=== PATIENT | male | born 1965 | race African-American/Black ===

== ENCOUNTER 2018-06-12 00:05 | Inpatient (IN) ==
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
[2018-06-12 01:25] LABS: Baso % (Auto) 0.3 % (0.0-2.0); Eos # (Auto) 0.5 th/mm3 (0.0-0.4); Eos % (Auto) 6.1 % (0.0-4.0); Hematocrit 37.5 % (39.0-51.0); Hemoglobin 12.9 gm/dL (13.0-17.0); Lymph # (Auto) 1.9 th/mm3 (1.0-4.8); Lymph % (Auto) 24.5 % (9.0-44.0); Mean Corpuscular HGB Conc 34.5 % (32.0-36.0); Mean Corpuscular Hemoglobin 31.5 pg (27.0-34.0); Mean Corpuscular Volume 91.3 fL (80.0-100.0); Mean Platelet Volume 8.1 fL (7.0-11.0); Mono # (Auto) 0.6 th/mm3 (0.0-0.9); Mono % (Auto) 7.6 % (0.0-8.0); Neut # (Auto) 4.8 th/mm3 (1.8-7.7); Neut % (Auto) 61.5 % (16.0-70.0); Platelet Count 220 th/mm3 (150-450); Red Cell Distribution Width 16.7 % (11.6-17.2); White Blood Count 7.9 th/mm3 (4.0-11.0)
--- NOTE | 2018-06-12 01:36 | XR ---
EXAM DATE: 06/12/2018 1:22 AM EST AGE/SEX: 52 years / Male INDICATIONS: Psych eval. CLINICAL DATA: This is the patient's initial encounter. Patient reports that signs and symptoms have been present for 1 day and indicates a pain score of Nonresponsive. MEDICAL/SURGICAL HISTORY: Non-responsive. CABG. COMPARISON: No prior exams available for comparison. FINDINGS: Single AP view the chest. Median sternotomy wires. Moderate severity cardiac silhouette enlargement. Prosthetic cardiac valve. Loop recorder in place. Lungs are clear. No evidence of pleural effusion or pneumothorax. CONCLUSION: Cardiac silhouette enlargement. Lungs are clear. Electronically signed by: Jc Jeff MD 06/12/2018 1:35 AM EST
[2018-06-12 01:42] LABS: Alanine Aminotransferase 15 U/L (12-78); Albumin 3.5 g/dL (3.4-5.0); Anion Gap 10 meq/L (5-15); Aspartate Aminotransferase 14 U/L (15-37); Blood Urea Nitrogen 9 mg/dL (7-18); Calcium 8.5 mg/dL (8.5-10.1); Carbon Dioxide 26.9 meq/L (21.0-32.0); Chloride 110 meq/L (98-107); Glomerular Filtration Rate 54 mL/min (>89); Glucose,Random 75 mg/dL (74-106); Potassium 3.8 meq/L (3.5-5.1); Sodium 147 meq/L (136-145)
[2018-06-12 01:45] LABS: Alkaline Phosphatase 66 U/L (45-117); Total Protein 7.4 g/dL (6.4-8.2)
--- NOTE | 2018-06-12 15:23 | ECG ---
Date Performed: 06/12/2018 Time Performed: 00:43:57 PTAGE: 52 years EKG: Sinus rhythm POSSIBLE LEFT ATRIAL ENLARGEMENT INDETERMINATE AXIS POSSIBLE ANTERIOR MYOCARDIAL INFARCTION INFERIOR MYOCARDIAL INFARCTION ARTIFACT V4, V5, V6 MAKES THIS SUBSTANDARD FOR INTERPRETATION. LOW LIMB LEAD V OLTAGE ABNORMAL ECG NO PREVIOUS TRACING DOCTOR: Moiz Britt Interpretating Date/Time 06/12/2018 15:22:21
[2018-06-12] MEDS ORDERED: Bisacodyl 10 MG Supp RECTAL PRN (16:34)
[2018-06-12] MEDS ORDERED: Aluminum/Magnesium/Simethacone Susp 30 ML UDC PO PRN (16:34)
[2018-06-12] MEDS ORDERED: Furosemide 20 MG Tablet PO SCH (16:45)
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
[2018-06-12] MEDS ORDERED: METOCLOPRAMIDE HCL 5 MG PO SCH (18:00)
[2018-06-12] MEDS ORDERED: Senna/Docusate Sodium 8.6/50 MG Tablet PO SCH (21:00)
[2018-06-12] MEDS: Pantoprazole Sodium 20 MG DR Tablet PO SCH (21:16)
[2018-06-12] MEDS: Acetaminophen 325 MG Tablet PO PRN (23:07)
[2018-06-12] MEDS: Melatonin 5 MG Tablet PO PRN (23:07)
[2018-06-13 08:47] LABS: Calcium 8.5 mg/dL (8.5-10.1); Carbon Dioxide 27.8 meq/L (21.0-32.0); Potassium 3.7 meq/L (3.5-5.1)
[2018-06-13 08:50] LABS: Chol/HDL Ratio 3.4 Ratio; HDL Cholesterol 37.6 mg/dL (40.0-60.0)
[2018-06-13] MEDS ORDERED: Non-Formulary Drug (Potassium Chloride [Potassium Chloride] 20 MEQ) PO SCH (09:00)
[2018-06-13] MEDS ORDERED: Non-Formulary Drug (Promethazine [Promethazine] 12.5 MG) PO SCH (09:00)
[2018-06-13] MEDS ORDERED: Sertraline 50 MG Tablet PO SCH (09:00)
[2018-06-13] MEDS: Pantoprazole Sodium 20 MG DR Tablet PO SCH ×2 (09:02→21:21)
--- NOTE | 2018-06-13 10:26 | P.HPPSY ---
Provisional Diagnosis Admission Date: June 12, 2018 16:34 [place] I.: 1. Major depressive disorder, single episode, severe without psychotic features Rule out component of adjustment disorder 2. Alcohol and cannabis use, rule out use disorder [place] II.: Deferred Competence Certification of Person's Competence To Provide Express and Informed Consent I have personally examined Fuad Ferrera, a person being served at [facility] on, June 13, 2018 1026. Express and informed consent means consent voluntarily given in writing, by a competent person, after sufficient explanation and disclosure of the subject matter involved to enable the person to make a knowing and willful decision without any element of force, fraud, deceit, duress, or other form of constraint or coercion. This person is 18 years of age or older, is not now known to be incompetent to consent to treatment with a guardian advocate, and does not have a health care surrogate or proxy currently making medical treatment decisions. I have found this person to be one of the following: [X] Competent to provide express and informed consent, as defined above, for voluntary admission to this facility and is competent to provide express and informed consent for treatment. He/she has the consistent capacity to make well reasoned, willful, and knowing decisions concerning his or her medical or mental health treatment. The person fully and consistently understands the purpose of the admission for examination/placement and is fully capable of personally exercising all rights assured [place] [] Incompetent to provide express and informed consent to voluntary admission, and this is incompetent to provide express and informed consent to treatment. The person must be transferred to involuntary status and a petition for a guardian advocate filed with the Circuit Court. [] Refusing to provide express and informed consent to voluntary admission but is competent to provide express and informed consent for treatment. The person must be discharged or transferred to involuntary status. Form shall be completed within 24 hours of a person's arrival at the receiving facility and filed in the clinical record of each person: 1. Admitted on a voluntary basis 2. Permitted to provide express and informed consent to his/her own treatment 3. Allowed to transfer from involuntary to voluntary status 4. Prior to permitting a person to consent to his or her own treatment after having been previously found incompetent to consent to treatment. History of Present Illness Capacity: Has capacity Chief Complaint: Meza Act History of Present Illness: Mr. Ferrera is a 52-year-old male with no reported past psychiatric history who presents in transfer from [facility] under a Meza act. Documentation from outside hospital reviewed. Patient presented to outside hospital under a [place] act by law enforcement alleging that the patient had discharged a firearm in an attempt to injure himself. Patient told the ED provider that he was depressed. Patient seen and examined with nurse. Chart reviewed. Case discussed with nursing staff. Patient noted to be tearful on the unit per nursing. On my examination today, the patient adamantly denies that presenting firearm discharge represented a suicide attempt. He says that he was cleaning his father's antique gun and it accidentally went off. He denies any suicidal ideation intent or plan and says that he wants to live for his grandchildren and children. The patient does admit to feeling depressed however and says that he feels that he has no sense of purpose and is frustrated in dealing with his medical conditions including significant cardiac issues. The patient tells me that he feels like he is "half the man I used to be." He also notes that he lost his mother in August and this was a significant stressor. In addition to low mood and worthless feelings the patient endorses poor sleep and seems fairly anhedonic. No hypomanic or manic symptoms. No audiovisual hallucinations. No delusional material. Remainder of the psychiatric ROS is negative. No acute physical complaints. Past psychiatric history: The patient denies a history of psychiatric diagnosis. He denies a history of inpatient or outpatient psychiatric treatment. He denies a history of suicide attempts. Patient reports he is currently prescribed Remeron 7.5mg qHS from non-psychiatric provider. Family history: The patient is unsure of his family psychiatric history as he was adopted. Chemical dependency history: The patient smokes cannabis 3 or 4 times a month. He drinks alcohol, 1 or 2 drinks a week or less. He denies any history of DTs, seizures, blackouts, DUIs or other consequences from alcohol use or withdrawal. No other substance use reported. Social history: The patient was adopted. He lives with a female friend. He is . He has 9 children and 10 grandchildren. 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 He is unable to work secondary to medical conditions. He has filed for disability. Denies any history. Firearm is reportedly father's antique firearm. He denies any history of abuse or mistreatment. - Inpatient Certification I certify that the inpatient services were ordered in accordance with Medicare regulations governing the order. This includes certification that hospital inpatient services are reasonable and necessary and in the case of services not specified as inpatient-only under 42 CFR 419.22(n), that they are appropriately provided as inpatient services in accordance to with the 2-midnight benchmark under 43 CFR 412.3(e) I certify that inpatient psychiatric hospital services are medically necessary. Evaluation and treatment and/or diagnostic testing are expected to improve the patient's condition. The patient needs on a daily basis, active treatment furnished directly by or requiring the supervision of inpatient psychiatric facility personnel. Estimated Total Length of Stay (Days): 7 Plans for Post Hospital Care: Not yet determined Review of Systems All other systems reviewed negative except as stated in HPI [facility] - History History Provided By: Patient, Medical Record - Medical History Medical History: Medical History (Last Reviewed 06/12/18 @ 17:35 by PRAVEENA Henderson) AAA (abdominal aortic aneurysm) Chest pain Heart attack - Tobacco History Second Hand Smoke Exposure: No Smoking Status: Former smoker Tobacco Type: Cigarettes - Alcohol History How Often Do You Have a Drink Containing Alcohol: 2 to 3 times a week - Substance Use History Substance History: Active Abuse - Substance Use Type Marijuana Status: Active Route Used: Inhalation Frequency: Couple times a month per pt. Reason for Use: Calm Down Comment: Stated 3-4 times a month "give or take". - Travel History Recent Travel in the USA Within the Last 8 Weeks: No Recent Travel Out of the Country Within the Last 8 Weeks: No - Immunization History Tetanus Immunization: <5 Years Hx Influenza Vaccine This Season: No Quality Measures - Psychiatric History Psychological trauma history: See above - Patient Strengths Patient's strengths (minimum of 2): In a monitored setting. Verbally fluent. Medications and Allergies Active Medications: Active Medications Acetaminophen (Tylenol) 650 mg PO Q4H PRN PRN Reason: [ Last Admin: 06/12/18 23:07 Dose: 650 mg Al Hydrox/Mg Hydrox/Simethicone (Mag-Al Plus Susp Liq) 30 ml PO Q6H PRN PRN Reason: DYSPEPSIA Al Hydroxide/Mg Hydroxide (Milk Of Brock Broderick) 30 ml PO Q12H PRN PRN Reason: Mild Constipation Carvedilol (Coreg) 3.125 mg PO DAILY [facility] Last Admin: 06/13/18 09:03 Dose: 3.125 mg Melatonin (Melatonin) 5 mg PO HS PRN PRN Reason: INSOMNIA Last Admin: 06/12/18 23:07 Dose: 5 mg Miscellaneous (Pill Splitter) 1 each OTHER [facility] Pantoprazole Sodium (Protonix) 20 mg PO BID [facility] Last Admin: 06/13/18 09:02 Dose: 20 mg Potassium Chloride (K-Dur) 20 meq PO DAILY [facility] Last Admin: 06/13/18 09:06 Dose: 20 meq Promethazine HCl (Phenergan) 12.5 mg PO DAILY [facility] Last Admin: 06/13/18 09:06 Dose: 12.5 mg Warfarin Sodium (Coumadin) 5 mg PO DAILY [facility] Last Admin: 06/13/18 09:03 Dose: 5 mg Allergies Allergy/AdvReac Type Severity Reaction Status Date / Time heparin Allergy UNKNOWN Verified 06/12/18 13:32 Home Medications Medication Instructions Recorded Confirmed Type alprazolam [Xanax] 2 mg PO BID 06/12/18 06/12/18 History carvedilol [Coreg] 3.125 mg PO DAILY 06/12/18 06/12/18 History clopidogrel 75 mg PO DAILY 06/12/18 06/12/18 History furosemide [Lasix] 20 mg PO DIRECTED 06/12/18 06/12/18 History metoclopramide HCl [Reglan] 5 mg PO TID 06/12/18 06/12/18 History pantoprazole [Protonix] 20 mg PO BID 06/12/18 06/12/18 History potassium chloride 20 meq PO DAILY 06/12/18 06/12/18 History promethazine 12.5 mg PO DAILY 06/12/18 06/12/18 History sertraline 50 mg PO DAILY 06/12/18 06/12/18 History warfarin [Coumadin] 5 mg PO DAILY 06/12/18 06/12/18 History Results - Labs CBC & Chem 7: 06/12/18 01:19 06/13/18 07:52 Labs: Laboratory Results - last 24 hr 06/13/18 07:52 Sodium 142 Potassium 3.7 Chloride 106 Carbon Dioxide 27.8 Anion Gap 8 BUN 10 Creatinine 1.22 Estimated GFR 76 L Random Glucose 93 Calcium 8.5 Triglycerides 100 Cholesterol 128 LDL Cholesterol, Calc 70 HDL Cholesterol 37.6 L Cholesterol/HDL Ratio 3.40 Labs from outside hospital reviewed: CBC unremarkable. BMP reveals mildly elevated creatinine at 1.4. Troponin negative. Tylenol and salicylate level undetectable. Alcohol level 196. Urine toxicology positive for benzodiazepines and cannabinoids. Exam Vital signs: Vital Signs 06/12/18 14:04 06/12/18 17:43 06/13/18 00:05 Temperature 98.8 F 98.4 F Pulse Rate 86 82 Respiratory Rate 18 17 16 Blood Pressure 138/97 H 141/93 H Pulse Oximetry 98 97 06/13/18 05:27 Temperature 97.8 F Pulse Rate 74 Respiratory Rate 19 Blood Pressure 108/65 Pulse Oximetry 95 Intake & Output 06/12/18 06/13/18 06/13/18 18:59 06:59 18:59 Intake Total 360 / 360 Balance 360 / 360 Weight 98.089 kg Intake: Oral 360 / 360 Other: Weight On Admission 98.089 kg Narrative: Physical examination was completed by ED provider at outside hospital. On my examination today, the patient appears to be in no acute physical distress. No motor abnormalities noted. No signs of intoxication or withdrawal noted. Labs and vital signs reviewed. Mental Status Examination Appearance: Appropriate Consciousness: Alert Orientation: x4 Motor Activity: Normal gait Speech: Unremarkable Language: Adequate Fund of Knowledge: Adequate Attention and Concentration: Adequate Memory: Unremarkable Mood: Sad Affect: Sad, Other (Tearful) Thought Process & Associations: Intact Thought Content: Appropriate Hallucination Type: None Delusion Type: None Suicidal Ideation: No (Unclear whether patient is reliable to contract for safety) Suicidal Plan: No Suicidal Intention: No Homicidal Ideation: No Homicidal Plan: No Homicidal Intention: No Insight: Fair Judgment: Impulsive Assessment and Plan - Assessment (1) Major depressive disorder Code(s): F32.9 - Major depressive disorder, single episode, unspecified Status : Acute - Plan Plan: 52-year-old male with psychiatric history as detailed above who presents in transfer from outside hospital under a Meza act. On my examination today, the patient presents as quite dysphoric and endorses multiple depressive symptoms. Patient also has significant life stressors including medical issues and of mother. My suspicion is that the patient is experiencing a major depressive episode, although some degree of adjustment disorder is also possible. Although the patient denies that presenting firearm discharge was suicidal in nature and denies suicidal ideation now, the severity of his depressive symptomatology suggests to me that it is the most prudent course of action to retain the patient on the inpatient unit to observe for any impairments and safety as well as for psychiatric stabilization. Admit inpatient. Voluntary status. To manage patient's depressive symptoms, we will titrate his Remeron to 15 mg at bedtime. Atarax as needed for anxiety. Melatonin as needed for sleep. R/B/A for medications discussed with patient. Hospitalist consultation to assist with management of medical conditions. Monitor for any signs of withdrawal, but lower suspicion for clinically significant withdrawal given patient's reported pattern of use. Occupational therapy consultation. Check TSH. Vitals every shift. Counselor to see. Collateral information. Disposition planning. Estimated length of stay: 5-7 days. Justification for Continued Inpatient Stay: See above Discharge Planning: Pending psychiatric stabilization Request Healthcare Surrogate/Guardian Advocate?: No (1) Major depressive disorder Qualifiers: Major depression recurrence: single episode Active/Remission status: currently active Major depression episode severity: severe Psychotic features : without psychotic features Qualified Code(s): F32.2 - Major depressive disorder, single episode, severe without psychotic features
[2018-06-13 12:30] LABS: Hemoglobin A1c 5.6 % (4.3-6.0)
--- NOTE | 2018-06-13 14:40 | P.CONIM ---
History of Present Illness Service: [facility] Consult date: 06/13/18 Reason for Consult: medical management Primary Care Provider: No Primary Care Physician Chief Complaint: chest pain/sob all the time History of Present Illness: This is a 52-year-old, , -Citizen Of [place] male, with past medical history of abdominal aortic aneurysm, chest pain, heart attack, CABG x1 and mitral valve repair and history of 8 stents per patient. Patient presented to the ED under a police initiated Meza act for threatening to commit suicide with a shotgun. According to the Meza act, the patient fired 2 warning shots out of the front window while making suicidal statements to a female in the house. Please furthermore state that upon their arrival the patient being the multiple times to shoot him. He is not previously known to the psychiatric department at this facility. Patient was admitted to the psychiatric unit for evaluation and management. Medicine team consulted for medical management. Patient seen and examined sitting at the bedside, complains of chest pain and shortness of breath work which he had it all the time. Patient admitted he had several heart attacks x3, heart surgery with bypass x1 and a mitral valve repair. Patient states had his heart doctor is Dr. Fortino Van in [place]. Patient states that he is using an inhaler when he is short of breath, like albuterol. Patient denies any smoking, but admitted occasional alcohol use. Patient denies any headache or dizziness, denies any abdominal pain, nausea, vomiting, diarrhea or constipation. Patient denies any fever or chills. Review of Systems All other systems reviewed negative except as stated in HPI [facility] - History History Provided By: Patient, Medical Record - Medical History Medical History: Medical History (Last Updated 06/13/18 @ 14:43 by PRAVEENA Styles) AAA (abdominal aortic aneurysm) Anxiety Chest pain Coronary artery disease involving coronary bypass graft Diverticulitis Heart attack - Surgical History Surgical History: Surgical History (Last Updated 06/13/18 @ 14:42 by PRAVEENA Styles) H/O hernia repair H/O mitral valve repair H/O ventral hernia repair History of colon resection - Social History I have reviewed the patient's Social History: Yes - Tobacco History Second Hand Smoke Exposure: No Tobacco Use In Past 30 Days: No Smoking Status: Former smoker Tobacco Type: Cigarettes - Alcohol History How Often Do You Have a Drink Containing Alcohol: 2 to 3 times a week - Substance Use History Substance History: Active Abuse - Substance Use Type Marijuana Status: Active Route Used: Inhalation Frequency: Couple times a month per pt. Reason for Use: Calm Down Comment: Stated 3-4 times a month "give or take". - Travel History Recent Travel in the [place] Within the Last 8 Weeks: No Recent Travel Out of the Country Within the Last 8 Weeks: No - Immunization History Tetanus Immunization: <5 Years Hx Influenza Vaccine This Season: No Medications and Allergies Active Medications: Active Medications Acetaminophen (Tylenol) 650 mg PO Q4H PRN PRN Reason: [ Last Admin: 06/12/18 23:07 Dose: 650 mg Al Hydrox/Mg Hydrox/Simethicone (Mag-Al Plus Susp Liq) 30 ml PO Q6H PRN PRN Reason: DYSPEPSIA Al Hydroxide/Mg Hydroxide (Milk Of Magnesia Liq) 30 ml PO Q12H PRN PRN Reason: Mild Constipation Carvedilol (Coreg) 3.125 mg PO DAILY [facility] Last Admin: 06/13/18 09:03 Dose: 3.125 mg Hydroxyzine HCl (Atarax) 25 mg PO Q6H PRN PRN Reason: ANXIETY Melatonin (Melatonin) 5 mg PO HS PRN PRN Reason: INSOMNIA Last Admin: 06/12/18 23:07 Dose: 5 mg Mirtazapine (Remeron) 15 mg PO HS [facility] Miscellaneous (Pill Splitter) 1 each OTHER [facility] Pantoprazole Sodium (Protonix) 20 mg PO BID [facility] Last Admin: 06/13/18 09:02 Dose: 20 mg Potassium Chloride (K-Dur) 20 meq PO DAILY [facility] Last Admin: 06/13/18 09:06 Dose: 20 meq Promethazine HCl (Phenergan) 12.5 mg PO DAILY [facility] Last Admin: 06/13/18 09:06 Dose: 12.5 mg Warfarin Sodium (Coumadin) 5 mg PO DAILY [facility] Last Admin: 06/13/18 09:03 Dose: 5 mg Allergies Allergy/AdvReac Type Severity Reaction Status Date / Time heparin Allergy UNKNOWN Verified 06/12/18 13:32 Home Medications Medication Instructions Recorded Confirmed Type alprazolam [Xanax] 2 mg PO BID 06/12/18 06/12/18 History carvedilol [Coreg] 3.125 mg PO DAILY 06/12/18 06/12/18 History clopidogrel 75 mg PO DAILY 06/12/18 06/12/18 History furosemide [Lasix] 20 mg PO DIRECTED 06/12/18 06/12/18 History metoclopramide HCl [Reglan] 5 mg PO TID 06/12/18 06/12/18 History pantoprazole [Protonix] 20 mg PO BID 06/12/18 06/12/18 History potassium chloride 20 meq PO DAILY 06/12/18 06/12/18 History promethazine 12.5 mg PO DAILY 06/12/18 06/12/18 History sertraline 50 mg PO DAILY 06/12/18 06/12/18 History warfarin [Coumadin] 5 mg PO DAILY 06/12/18 06/12/18 History Exam Vital signs: Vital Signs 06/12/18 17:43 06/13/18 00:05 06/13/18 05:27 Temperature 98.4 F 97.8 F Pulse Rate 82 74 Respiratory Rate 17 16 19 Blood Pressure 141/93 H 108/65 Pulse Oximetry 97 95 Intake & Output 06/12/18 06/13/18 06/13/18 18:59 06:59 18:59 Intake Total 720 / 720 Balance 720 / 720 Weight 98.089 kg Intake: Oral 720 / 720 Other: Weight On Admission 98.089 kg Narrative: GENERAL: Well-developed, well-nourished, -Citizen Of [place] male, ambulatory in the hallway with no assistive device, in no apparent distress SKIN: Warm and dry. Mid chest surgical scar healing well HEAD: Atraumatic. Normocephalic. EYES: Pupils equal and round. No scleral icterus. No injection or drainage. ENT: No nasal bleeding or discharge. Mucous membranes pink and moist. NECK: Trachea midline. No JVD. CARDIOVASCULAR: Regular rate and rhythm. RESPIRATORY: No accessory muscle use. Clear to auscultation. Breath sounds equal bilaterally. GASTROINTESTINAL: Abdomen soft, non-tender, nondistended. Hepatic and splenic margins not palpable. MUSCULOSKELETAL: Extremities without clubbing, cyanosis, or edema. No obvious deformities. NEUROLOGICAL: Awake and alert. No obvious cranial nerve deficits. Motor grossly within normal limits. Five out of 5 muscle strength in the arms and legs. Normal speech. PSYCHIATRIC: Appropriate mood and affect; insight and judgment normal. Results - Labs CBC & Chem 7: 06/12/18 01:19 06/13/18 07:52 Labs: Laboratory Results - last 24 hr 06/13/18 06/13/18 06/13/18 07:52 07:52 07:52 Sodium 142 Potassium 3.7 Chloride 106 Carbon Dioxide 27.8 Anion Gap 8 BUN 10 Creatinine 1.22 Estimated GFR 76 L Random Glucose 93 Hemoglobin A1c 5.6 Calcium 8.5 Triglycerides 100 Cholesterol 128 LDL Cholesterol, Calc 70 HDL Cholesterol 37.6 L Cholesterol/HDL Ratio 3.40 TSH 0.900 Assessment and Plan - Assessment (1) Arteriosclerosis of coronary artery bypass graft Code(s): I25.810 - Atherosclerosis of coronary artery bypass graft(s) without angina pectoris Status: Acute (2) Chest pain Code(s): R07.9 - Chest pain, unspecified Status: Acute (3) History of mitral valve repair Code(s): Z98.890 - Other specified postprocedural states Status: Acute (4) Acute anxiety Code(s): F41.9 - Anxiety disorder, unspecified Status: Acute (5) Major depressive disorder Code(s): F32.9 - Major depressive disorder, single episode, unspecified Status : Acute - Plan This is a 52-year-old, , -Citizen Of [place] male, with past medical history of abdominal aortic aneurysm, chest pain, heart attack, CABG x1 and mitral valve repair and history of 8 stents per patient. Patient presented to the ED under a police initiated Meza act for threatening to commit suicide with a shotgun. Chest pain/SOB Arteriosclerosis of coronary artery bypass graft History of mitral valve repair/ Loop recorder Hx CABG x 1, and multiple /stents -c/o chest pain and SOB all the time -C X-ray: No evidence of pleural effusion or Pneumothorax. Cardiac Silhouette enlargement. Lungs are clear -Troponin less than 0.02 -BNP 538 -2D Echo ordered -12 Lead ECG : Sinus Rhythm, possible left atrial enlargement indeterminate axis , possible anterior MO, inferior MO -repeat Troponin 1 and 12 lead ECG, Check INR -add Imdur low dose, monitor response -continue Home medications, Carvedilol, Plavix, furosemide, potassium, Coumadin -will consider Cardiology consult if patient continue to have chest pain Hypertension -BP slightly Elevated -Continue medication as stated above -Monitor blood pressure, adjust medication as necessary Acute anxiety Major depressive disorder -Management by psychiatric team -Anxiety likely contributing to CP/SOB or vice versa -on Remeron and Zoloft DVT Prophylaxis: on Coumadin, patient ambulatory Code Status: full code Discussed Condition With: patient and nurse (5) Major depressive disorder Qualifiers: Major depression recurrence: single episode Active/Remission status: currently active Major depression episode severity: severe Psychotic features : without psychotic features Qualified Code(s): F32.2 - Major depressive disorder, single episode, severe without psychotic features
[2018-06-13 18:05] LABS: INR 1.1 Ratio; Prothrombin Time 11.4 sec (9.8-11.6)
[2018-06-13] MEDS: Acetaminophen 325 MG Tablet PO PRN (21:21)
[2018-06-13] MEDS: Melatonin 5 MG Tablet PO PRN (21:21)
[2018-06-13] MEDS: Mirtazapine 15 MG Tablet PO SCH (21:21)
[2018-06-14] MEDS: Isosorbide Mononitrate 30 MG ER 24HR Tablet (Imdur) PO SCH (06:18)
[2018-06-14] MEDS: Acetaminophen 325 MG Tablet PO PRN ×4 (06:18→22:35)
[2018-06-14] MEDS: Pantoprazole Sodium 20 MG DR Tablet PO SCH ×2 (09:04→22:36)
--- NOTE | 2018-06-14 09:55 | P.TTN ---
- Patient Problems Problems: 1. Discharge planning 2. Medication compliance 3. Knowledge deficit 4. Lack of coping skills - Progress Toward Goals Provider Present: Dr. 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 Stated he wants to work. Confused about the shot gun going off twice. Nurse Input: 06/14/2018 Patient had an abdominal aortic aneurysm and multiple medical problems. Psychiatric Therapist Input: 06/14/2018 Patient attended group yesterday but minimal participation. He was withdrawn and sad. Cried at the end of group would did not want to elaborate with the therapist afterwards privately. Group Spec/RT/OT/SCHNEIDER Present: Rey Carrera OT (Questioned patient about wanting diability and he became defensive as he wants to work previously having multiple jobs) - Documentation Teaching Recipient: Family
--- NOTE | 2018-06-14 10:49 | P.PNPSY ---
Subjective Chief Complaint: Meza Act Remarks: Patient seen and examined with nurse. Chart reviewed. Case discussed with nursing staff. No behavioral issues noted overnight. Case discussed in treatment team. Counselor to call for collateral information. On my examination today, the patient seems in much better spirits. He says that he slept well overnight. His mood is subjectively improved and he feels like he has more purpose and that his perspective has changed for the better. He denies any suicidal ideation. Denies side effects from medications. No acute physical complaints. He complains of some mild chronic chest pain, which he attributes to his abdominal aortic aneurysm, but this is reportedly at baseline. Hospitalist is following up on this. No other physical complaints. Vital Signs Temp Pulse Resp BP Pulse Ox 06/14/18 07:03 16 06/14/18 06:26 98.6 F 78 16 117/76 98 06/13/18 22:20 16 06/13/18 17:34 98.5 F 81 16 149/97 H 95 Intake and Output 06/13/18 06/14/18 06/14/18 22:59 06:59 14:59 Intake Total 360 / 360 720 / 720 Balance 360 / 360 720 / 720 Intake: Oral 360 / 360 720 / 720 Laboratory Results - last 24 hr 06/13/18 06/13/18 17:43 17:43 PT 11.4 INR 1.1 Troponin I Less than 0.02 L Labs reviewed. Troponin negative. TSH within normal limits. Review of Systems All other systems reviewed negative except as stated in HPI Mental Status Examination Appearance: Appropriate Consciousness: Alert Orientation: x4 Motor Activity: Normal gait Speech: Unremarkable Language: Adequate Fund of Knowledge: Adequate Attention and Concentration: Adequate Memory: Unremarkable Mood: Other (Mood improving) Affect: Appropriate Thought Process & Associations: Intact Thought Content: Appropriate Hallucination Type: None Delusion Type: None Suicidal Ideation: No Suicidal Plan: No Suicidal Intention: No Homicidal Ideation: No Homicidal Plan: No Homicidal Intention: No Insight: Fair Judgment: Impulsive Assessment and Plan - Assessment (1) Major depressive disorder Code(s): F32.9 - Major depressive disorder, single episode, unspecified Status : Acute - Plan Plan: Continue Remeron as ordered. Patient's mood seems to be improving swiftly, and it is possible that presenting dysphoria was driven by adjustment disorder and not by a major depressive episode. Hospitalist input noted and appreciated. Continue to monitor on the inpatient unit. Continue other medications and care as ordered. Justification for Continued Inpatient Stay: Monitoring for impairment and safety, none noted. Risk for decompensation and less restrictive environment. Discharge Planning: Pending further observation. Possible discharge after the weekend. Request Healthcare Surrogate/Guardian Advocate?: No (1) Major depressive disorder Qualifiers: Major depression recurrence: single episode Active/Remission status: currently active Major depression episode severity: severe Psychotic features : without psychotic features Qualified Code(s): F32.2 - Major depressive disorder, single episode, severe without psychotic features
[2018-06-14] MEDS ORDERED: Warfarin Consult Pharmacy OTHER PRN (16:41)
--- NOTE | 2018-06-14 17:01 | P.PNIM ---
Subjective Interval history: Follow-up chest pain, heart attack, CABG x1 and mitral valve repair,abdominal aortic aneurysm, and suicidal ideation, under Meza act. Patient seen and examined sitting in the chair, pleasant, following directions and answering questions appropriately. Patient denies any chest pain or shortness of breath at this time stated improving however it comes and goes. Patient denies any headache or dizziness, denies any abdominal pain, nausea, vomiting, diarrhea or constipation. Patient denies any fever or chills. Patient stated he have this chest pain and shortness of breath due to his AAA that is unable to do a surgery due to her recent open heart surgery. Physical Exam Vital signs: Vital Signs 06/13/18 17:34 06/13/18 22:20 06/14/18 06:26 Temperature 98.5 F 98.6 F Pulse Rate 81 78 Respiratory Rate 16 16 16 Blood Pressure 149/97 H 117/76 Pulse Oximetry 95 98 06/14/18 07:03 Temperature Pulse Rate Respiratory Rate 16 Blood Pressure Pulse Oximetry Intake & Output 06/13/18 06/14/18 06/14/18 18:59 06:59 18:59 Intake Total 1080 / 1080 720 / 720 Balance 1080 / 1080 720 / 720 Intake: Oral 1080 / 1080 720 / 720 Narrative: GENERAL: Well-developed, well-nourished, -Tajik male, ambulatory in the hallway with no assistive device, in no apparent distress SKIN: Warm and dry. Mid chest surgical scar healing well HEAD: Atraumatic. Normocephalic. EYES: Pupils equal and round. No scleral icterus. No injection or drainage. ENT: No nasal bleeding or discharge. Mucous membranes pink and moist. NECK: Trachea midline. No JVD. CARDIOVASCULAR: Regular rate and rhythm. RESPIRATORY: No accessory muscle use. Clear to auscultation. Breath sounds equal bilaterally. GASTROINTESTINAL: Abdomen soft, non-tender, nondistended. Hepatic and splenic margins not palpable. MUSCULOSKELETAL: Extremities without clubbing, cyanosis, or edema. No obvious deformities. NEUROLOGICAL: Awake and alert. No obvious cranial nerve deficits. Motor grossly within normal limits. Five out of 5 muscle strength in the arms and legs. Normal speech. PSYCHIATRIC: Appropriate mood and affect; insight and judgment poor Results - Labs CBC & Chem 7: 06/12/18 01:19 06/13/18 07:52 Laboratory Results - last 24 hr 06/13/18 06/13/18 17:43 17:43 PT 11.4 INR 1.1 Troponin I Less than 0.02 L Assessment and Plan - Assessment (1) Arteriosclerosis of coronary artery bypass graft Code(s): I25.810 - Atherosclerosis of coronary artery bypass graft(s) without angina pectoris Status: Acute (2) Chest pain Code(s): R07.9 - Chest pain, unspecified Status: Acute (3) History of mitral valve repair Code(s): Z98.890 - Other specified postprocedural states Status: Acute (4) Acute anxiety Code(s): F41.9 - Anxiety disorder, unspecified Status: Acute (5) Major depressive disorder Code(s): F32.9 - Major depressive disorder, single episode, unspecified Status : Acute - Plan This is a 52-year-old, , -Tajik male, with past medical history of abdominal aortic aneurysm, chest pain, heart attack, CABG x1 and mitral valve repair and history of 8 stents per patient. Patient presented to the ED under a police initiated Meza act for threatening to commit suicide with a shotgun. Chest pain/SOB Abdominal aortic aneurysm Arteriosclerosis of coronary artery bypass graft History of mitral valve repair/ Loop recorder Hx CABG x 1, and multiple /stents -c/o chest pain and SOB all the time -C X-ray: No evidence of pleural effusion or Pneumothorax. Cardiac Silhouette enlargement. Lungs are clear -Troponin less than 0.02 -BNP 538 -2D Echo ordered -12 Lead ECG : Sinus Rhythm, possible left atrial enlargement indeterminate axis , possible anterior PR, inferior PR -repeat Troponin 1: less than 0.02 , INR 1.1 -continue Home medications, Carvedilol, Plavix, furosemide, potassium, Coumadin -will consider Cardiology consult if patient continue to have chest pain -Improving symptoms, No chest pain or shortness of breath today -continue Imdur low dose, monitor response -Start on Lovenox subcu, increase Coumadin dose, DC Lovenox when INR is greater than 2.5, check daily INR until greater than 2.0, until verified from the Shipping Receiving Clerk -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 Pls try to obtain records on Sunday Hypertension -BP slightly Elevated -Continue medication as stated above -Monitor blood pressure, adjust medication as necessary Acute anxiety Major depressive disorder -Management by psychiatric team -Anxiety likely contributing to CP/SOB or vice versa -on Remeron and Zoloft DVT Prophylaxis: on Coumadin, patient ambulatory Code Status: full code Discussed Condition With: patient and nurse (5) Major depressive disorder Qualifiers: Major depression recurrence: single episode Active/Remission status: currently active Major depression episode severity: severe Psychotic features : without psychotic features Qualified Code(s): F32.2 - Major depressive disorder, single episode, severe without psychotic features
--- NOTE | 2018-06-14 17:14 | ECHRPT ---
Indication: CHEST PAIN CONCLUSIONS The left ventricular systolic function is iofrnuoj-wz-bopsaqx reduced with an estimated ejection fra ction in the range of 35-40%. Mildly dilated left ventricle. Wall thickness is measured at the upper limits of normal. The left atrial size is mildly dilated. Ofrx-xs-zpzjlovf mitral valve regurgitation. Mitral valve annuloplasty ring is present. Mild to moderate mitral annular calcification. Moderate aortic valve regurgitation. Aortic valve sclerosis is present. There is trace tricuspid valve regurgitation. The estimated pulmonary arterial pressure is 47.2 mmHg. Mild pulmonary valve regurgitation. BP: / HR: Rhythm: Sinus MEASUREMENTS (Male / Female) Normal Values Technical Quality:Fair 2D ECHO LV Diastolic Diameter PLAX 5.5 cm 4.2 - 5.9 / 3.9 - 5.3 cm LV Systolic Diameter PLAX 4.5 cm IVS Diastolic Thickness 1.0 cm 0.6 - 1.0 / 0.6 - 0.9 cm LVPW Diastolic Thickness 1.0 cm 0.6 - 1.0 / 0.6 - 0.9 cm LV Relative Wall Thickness 0.4 RV Internal Dim ED PLAX 3.5 cm LVOT Diameter 2.1 cm Aortic Root Diameter 3.0 cm LA Systolic Diameter LX 4.3 cm 3.0 - 4.0 / 2.7 - 3.8 cm M-MODE AV Cusp Separation MM 2.1 cm DOPPLER AV Peak Velocity 125.0 cm/s AV Peak Gradient 6.3 mmHg AV Mean Gradient 4.0 mmHg AV Velocity Time Integral 24.3 cm AI Peak Velocity 512.0 cm/s AI Peak Gradient 104.9 mmHg AI Pressure Half Time 412.0 ms LVOT Peak Velocity 94.9 cm/s LVOT Peak Gradient 3.6 mmHg LVOT Velocity Time Integral 15.9 cm AV Area Cont Eq vti 2.3 cm AV Area Cont Eq pk 2.6 cm Mitral E Point Velocity 156.5 cm/s Mitral A Point Velocity 93.8 cm/s Mitral E to A Ratio 1.7 LV E' Lateral Velocity 13.1 cm/s Mitral E to LV E' Lateral Ratio 11.9 LV E' Septal Velocity 4.9 cm/s Mitral E to LV E' Septal Ratio 32.1 TR Peak Velocity 305.0 cm/s TR Peak Gradient 37.2 mmHg Right Atrial Pressure 10.0 mmHg Pulmonary Artery Systolic Pressu 47.2 mmHg Right Ventricular Systolic Press 47.2 mmHg PV Peak Velocity 51.9 cm/s PV Peak Gradient 1.1 mmHg FINDINGS LEFT VENTRICLE The left ventricular systolic function is mhtbjysl-zn-ayhrime reduced with an estimated ejection fra ction in the range of 35-40%. Mildly dilated left ventricle. Wall thickness is measured at the upper limits of normal. RIGHT VENTRICLE Normal right ventricular size and systolic function. LEFT ATRIUM The left atrial size is mildly dilated. RIGHT ATRIUM The right atrial size is normal. ATRIAL SEPTUM No atrial level shunt is demonstrated by color flow Doppler interrogation. AORTA The aortic root and proximal ascending aorta are normal in size on limited imaging. MITRAL VALVE Mryx-me-tomagflb mitral valve regurgitation. Mitral valve annuloplasty ring is present. Mild mitral annular calcification. AORTIC VALVE Moderate aortic valve regurgitation. Aortic valve sclerosis is present. TRICUSPID VALVE There is trace tricuspid valve regurgitation. The estimated pulmonary arterial pressure is 47.2 mmHg. PULMONARY VALVE Mild pulmonary valve regurgitation. VESSELS The inferior vena cava was not well visualized. PERICARDIUM No pericardial effusion. Jerry Palma MD, FACC, FSCAI (Electronically Signed) Final Date:14 June 2018 17:13
--- NOTE | 2018-06-14 18:43 | ECG ---
Date Performed: 06/13/2018 Time Performed: 17:40:34 PTAGE: 52 years EKG: Sinus rhythm INFERIOR MYOCARDIAL INFARCTION , PROBABLY RECENT, AGE INDETERMINANT SIGNIFICANT BASELINE ARTIFACT JOSEE PUENTE THIS SUBSTANDARD FOR INTERPRETATION, BUT ST SEGMENTS APPEAR TO HAVE ELEVATED FROM THE PRIOR URIEL NG Clinical correlation is recommended PREVIOUS TRACING : 06/12/2018 00.43 DOCTOR: Moiz Britt Interpretating Date/Time 06/14/2018 18:41:58
[2018-06-14 19:06] LABS: INR 1.1 Ratio; Prothrombin Time 11.4 sec (9.8-11.6)
[2018-06-14] MEDS ORDERED: Enoxaparin Inj 100 MG/ML Syringe SQ SCH (21:00)
[2018-06-14] MEDS: Mirtazapine 15 MG Tablet PO SCH (22:36)
[2018-06-14] MEDS: Melatonin 5 MG Tablet PO PRN (22:39)
[2018-06-15] MEDS: Acetaminophen 325 MG Tablet PO PRN ×2 (06:08→16:37)
[2018-06-15] MEDS: Lisinopril 10 MG Tablet PO SCH ×2 (06:49→08:25)
[2018-06-15] MEDS: Isosorbide Mononitrate 30 MG ER 24HR Tablet (Imdur) PO SCH (06:50)
[2018-06-15] MEDS: Pantoprazole Sodium 20 MG DR Tablet PO SCH ×2 (08:23→20:22)
[2018-06-15 11:07] LABS: INR 1.3 Ratio; Prothrombin Time 12.7 sec (9.8-11.6)
--- NOTE | 2018-06-15 15:58 | P.PNIM ---
Subjective Interval history: Follow-up hypertension, chest pain, heart attack, CABG x1 and mitral valve repair,abdominal aortic aneurysm, and suicidal ideation, under Meza act. Patient seen and examined sitting in the chair, complaint and worried about her blood pressure today stated he has never his blood pressure has never been that high. He was states he stated that his blood pressure has been low so he was cut off on some of the medications previously. He also complained about the effect of nitrite giving him a headache, patient stated that he was taken off Ranexa previously and was in giving him a headache 2. He stated he would rather have a chest pain than a headache. Patient denies any chest pain, dizziness, abdominal pain, nausea, vomiting, diarrhea or constipation. Patient denies any fever or chills. Physical Exam Vital signs: Vital Signs 06/14/18 17:39 06/15/18 05:58 Temperature 98.4 F 98.1 F Pulse Rate 89 91 H Respiratory Rate 18 18 Blood Pressure 149/88 H 160/104 H Pulse Oximetry 99 98 Intake & Output 06/14/18 06/15/18 06/15/18 18:59 06:59 18:59 Intake Total 1080 / 1080 360 / 360 720 / 720 Balance 1080 / 1080 360 / 360 720 / 720 Intake: Oral 1080 / 1080 360 / 360 720 / 720 Narrative: GENERAL: Well-developed, well-nourished, -Hungarian male, ambulatory in the hallway with no assistive device, in no apparent distress SKIN: Warm and dry. Mid chest surgical scar healing well HEAD: Atraumatic. Normocephalic. EYES: Pupils equal and round. No scleral icterus. No injection or drainage. ENT: No nasal bleeding or discharge. Mucous membranes pink and moist. NECK: Trachea midline. No JVD. CARDIOVASCULAR: Regular rate and rhythm. RESPIRATORY: No accessory muscle use. Clear to auscultation. Breath sounds equal bilaterally. GASTROINTESTINAL: Abdomen soft, non-tender, nondistended. Hepatic and splenic margins not palpable. MUSCULOSKELETAL: Extremities without clubbing, cyanosis, or edema. No obvious deformities. NEUROLOGICAL: Awake and alert. No obvious cranial nerve deficits. Motor grossly within normal limits. Five out of 5 muscle strength in the arms and legs. Normal speech. PSYCHIATRIC: Appropriate mood and affect; insight and judgment poor Results - Labs CBC & Chem 7: 06/12/18 01:19 06/13/18 07:52 Laboratory Results - last 24 hr 06/14/18 06/15/18 18:15 10:29 PT 11.4 12.7 H INR 1.1 1.3 Assessment and Plan - Assessment (1) Arteriosclerosis of coronary artery bypass graft Code(s): I25.810 - Atherosclerosis of coronary artery bypass graft(s) without angina pectoris Status: Acute (2) Chest pain Code(s): R07.9 - Chest pain, unspecified Status: Acute (3) History of mitral valve repair Code(s): Z98.890 - Other specified postprocedural states Status: Acute (4) Acute anxiety Code(s): F41.9 - Anxiety disorder, unspecified Status: Acute (5) Major depressive disorder Code(s): F32.9 - Major depressive disorder, single episode, unspecified Status : Acute - Plan This is a 52-year-old, , -Hungarian male, with past medical history of abdominal aortic aneurysm, chest pain, heart attack, CABG x1 and mitral valve repair and history of 8 stents per patient. Patient presented to the ED under a police initiated Meza act for threatening to commit suicide with a shotgun. Chest pain/SOB Abdominal aortic aneurysm Arteriosclerosis of coronary artery bypass graft History of mitral valve repair/ Loop recorder Hx CABG x 1, and multiple /stents -c/o chest pain and SOB all the time -C X-ray: No evidence of pleural effusion or Pneumothorax. Cardiac Silhouette enlargement. Lungs are clear -Troponin less than 0.02 -BNP 538 -2D Echo ordered -12 Lead ECG : Sinus Rhythm, possible left atrial enlargement indeterminate axis , possible anterior PR, inferior PR -repeat Troponin 1: less than 0.02 , INR 1.1 -continue Home medications, Carvedilol, Plavix, furosemide, potassium, Coumadin -will consider Cardiology consult if patient continue to have chest pain -Improving symptoms, No chest pain or shortness of breath today -Discontinued Imdur due to adverse reaction, severe headache that is affecting daily activity. 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 Pls try to obtain records on Sunday Hypertension -BP slightly Elevated -Continue medication as stated above -Increase Coreg dose Add as needed clonidine for SBP greater than 160 or DBP greater than 90 -Monitor blood pressure, adjust medication as necessary DVT/PE, history of History of polycythemia per patient report -Continue Coumadin dose -INR daily, goal greater than 2.5 less than 3.5 -Encourage ambulation Acute anxiety Major depressive disorder -Management by psychiatric team -Anxiety likely contributing to CP/SOB or vice versa -on Remeron and Zoloft DVT Prophylaxis: on Coumadin, patient ambulatory Code Status: Full code Discussed Condition With: Patient and nurse (5) Major depressive disorder Qualifiers: Major depression recurrence: single episode Active/Remission status: currently active Major depression episode severity: severe Psychotic features : without psychotic features Qualified Code(s): F32.2 - Major depressive disorder, single episode, severe without psychotic features
--- NOTE | 2018-06-15 18:13 | P.PNPSY ---
Subjective Chief Complaint: Meza Act Remarks: Reviewed electronic medical records and discussed case with staff. Follow-up was conducted in the [address] [facility] with LUCIA Smith present. She reports the patient has not been compliant with his Imdur and feels that it is responsible for his headaches. He is also had some difficulty with his high blood pressure. He is being followed by medical and they have made some recent changes. He reports that he feels "pretty good". He states that his mood/perspective is a lot better. He complains that he does not sleep too well because of the headache but reports that his appetite's been okay. He states that he expects to be discharged Sunday. Mental Status Examination Appearance: Appropriate Consciousness: Alert Orientation: x4 Motor Activity: Normal gait Speech: Unremarkable Language: Adequate Fund of Knowledge: Adequate Attention and Concentration: Adequate Memory: Unremarkable Mood: Other (Mood improving) Affect: Appropriate Thought Process & Associations: Intact Thought Content: Appropriate Hallucination Type: None Delusion Type: None Suicidal Ideation: No Suicidal Plan: No Suicidal Intention: No Homicidal Ideation: No Homicidal Plan: No Homicidal Intention: No Insight: Fair Judgment: Impulsive Assessment and Plan - Assessment (1) Major depressive disorder Code(s): F32.9 - Major depressive disorder, single episode, unspecified Status : Acute - Plan Plan: Patient will be reevaluated by the attending psychiatrist. Continue with current treatment plan. Justification for Continued Inpatient Stay: Moving this patient to a less restrictive environment would likely result in decompensation. Request Healthcare Surrogate/Guardian Advocate?: No (1) Major depressive disorder Qualifiers: Major depression recurrence: single episode Active/Remission status: currently active Major depression episode severity: severe Psychotic features : without psychotic features Qualified Code(s): F32.2 - Major depressive disorder, single episode, severe without psychotic features
[2018-06-15] MEDS ORDERED: hydrALAZINE 25 MG Tablet PO ONE (19:13)
[2018-06-15] MEDS: Melatonin 5 MG Tablet PO PRN ×2 (19:50→20:22)
[2018-06-15] MEDS: Mirtazapine 15 MG Tablet PO SCH (20:22)
[2018-06-16] MEDS: Acetaminophen 325 MG Tablet PO PRN ×2 (04:30→20:19)
[2018-06-16 08:42] LABS: INR 1.4 Ratio; Prothrombin Time 14.1 sec (9.8-11.6)
[2018-06-16] MEDS: Lisinopril 10 MG Tablet PO SCH (09:01)
[2018-06-16] MEDS: Pantoprazole Sodium 20 MG DR Tablet PO SCH ×2 (09:01→20:15)
--- NOTE | 2018-06-16 11:54 | P.PNPSY ---
Subjective Chief Complaint: Meza Act Remarks: Reviewed electronic medical record and discussed with nursing staff. Patient in his room taking a nap. Rounded with LUCIA Sesay. Patient states his headache is subsiding since the Indur was discontinued. He is preoccupied with his cardiac history and AAA. He states that he was adopted and he does not know about his family history. Discussed eating right, exercise and sleep hygiene to the best of his ability . Living life to it's fullest. Patient agreed that he is seclusive and thinking about his heart. He is going to try to harder to get out of his room. Denies SI/HI. Review of Systems All other systems reviewed negative except as stated in HPI Mental Status Examination Appearance: Appropriate Consciousness: Alert Orientation: x4 Motor Activity: Normal gait Speech: Unremarkable Language: Adequate Fund of Knowledge: Adequate Attention and Concentration: Adequate Memory: Unremarkable Mood: Other (Mood improving) Affect: Appropriate Thought Process & Associations: Intact Thought Content: Appropriate Hallucination Type: None Delusion Type: None Suicidal Ideation: No Suicidal Plan: No Suicidal Intention: No Homicidal Ideation: No Homicidal Plan: No Homicidal Intention: No Insight: Fair Judgment: Impulsive Assessment and Plan - Assessment (1) Major depressive disorder Code(s): F32.9 - Major depressive disorder, single episode, unspecified Status : Acute - Plan Plan: Patient will be reevaluated by the attending psychiatrist. Continue with current treatment plan. Justification for Continued Inpatient Stay: Moving patient to a less restrictive environment may result in his decompensation. Request Healthcare Surrogate/Guardian Advocate?: No (1) Major depressive disorder Qualifiers: Major depression recurrence: single episode Active/Remission status: currently active Major depression episode severity: severe Psychotic features : without psychotic features Qualified Code(s): F32.2 - Major depressive disorder, single episode, severe without psychotic features
--- NOTE | 2018-06-16 14:34 | P.PNIM ---
Subjective Interval history: Follow-up hypertension, chest pain, heart attack, CABG x1 and mitral valve repair,abdominal aortic aneurysm, and suicidal ideation, under Meza act. Patient seen and examined sitting in the bed, denies any chest pain at this time. Denies any headache or dizziness. Pt c/o did not sleep well last night. Discussed availability of melatonin as needed, discussed inform the nurse. Patient stated eating well and had good bowel movement without a problem. Patient denies any abdominal pain, nausea, vomiting, diarrhea or constipation. Patient denies any fever or chills. Discussed Coumadin and frequent check for INRs. Patient reported he was not checking his INR as often this should be due to her to his insurance and complained co-pay for seeing a doctor so expensive for him. States that he is already applying for his disability. States that his areas in [place], and he has a correspondence coordinator helping him to apply for disability. Physical Exam Vital signs: Vital Signs 06/15/18 16:27 06/15/18 18:36 06/15/18 19:15 Temperature 98.1 F Pulse Rate 86 92 H 96 H Respiratory Rate 18 18 Blood Pressure 158/103 H 156/105 H 136/87 Pulse Oximetry 99 06/15/18 23:06 06/16/18 04:50 06/16/18 13:07 Temperature 98.5 F Pulse Rate 96 H 85 Respiratory Rate 18 16 16 Blood Pressure 136/88 149/94 H Pulse Oximetry 99 Intake & Output 06/15/18 06/16/18 06/16/18 18:59 06:59 18:59 Intake Total 1080 / 1080 Balance 1080 / 1080 Intake: Oral 1080 / 1080 Narrative: GENERAL: Well-developed, well-nourished, -[place] male, ambulatory in the hallway with no assistive device, in no apparent distress SKIN: Warm and dry. Mid chest surgical scar healing well HEAD: Atraumatic. Normocephalic. EYES: Pupils equal and round. No scleral icterus. No injection or drainage. ENT: No nasal bleeding or discharge. Mucous membranes pink and moist. NECK: Trachea midline. No JVD. CARDIOVASCULAR: Regular rate and rhythm. RESPIRATORY: No accessory muscle use. Clear to auscultation. Breath sounds equal bilaterally. GASTROINTESTINAL: Abdomen soft, non-tender, nondistended. Hepatic and splenic margins not palpable. MUSCULOSKELETAL: Extremities without clubbing, cyanosis, or edema. No obvious deformities. NEUROLOGICAL: Awake and alert. No obvious cranial nerve deficits. Motor grossly within normal limits. Five out of 5 muscle strength in the arms and legs. Normal speech. PSYCHIATRIC: Appropriate mood and affect; insight and judgment poor Results - Labs CBC & Chem 7: 06/12/18 01:19 06/13/18 07:52 Laboratory Results - last 24 hr 06/16/18 07:47 PT 14.1 H INR 1.4 Assessment and Plan - Assessment (1) Arteriosclerosis of coronary artery bypass graft Code(s): I25.810 - Atherosclerosis of coronary artery bypass graft(s) without angina pectoris Status: Acute (2) Chest pain Code(s): R07.9 - Chest pain, unspecified Status: Acute (3) History of mitral valve repair Code(s): Z98.890 - Other specified postprocedural states Status: Acute (4) Acute anxiety Code(s): F41.9 - Anxiety disorder, unspecified Status: Acute (5) Major depressive disorder Code(s): F32.9 - Major depressive disorder, single episode, unspecified Status : Acute - Plan This is a 52-year-old, , -[place] male, with past medical history of abdominal aortic aneurysm, chest pain, heart attack, CABG x1 and mitral valve repair and history of 8 stents per patient. Patient presented to the ED under a police initiated Meza act for threatening to commit suicide with a shotgun. Chest pain/SOB Abdominal aortic aneurysm Arteriosclerosis of coronary artery bypass graft History of mitral valve repair/ Loop recorder Hx CABG x 1, and multiple /stents -c/o chest pain and SOB all the time -C X-ray: No evidence of pleural effusion or Pneumothorax. Cardiac Silhouette enlargement. Lungs are clear -Troponin less than 0.02 -BNP 538 -2D Echo ordered -12 Lead ECG : Sinus Rhythm, possible left atrial enlargement indeterminate axis , possible anterior OR, inferior OR -repeat Troponin 1: less than 0.02 , INR 1.1 -continue Home medications, Carvedilol, Plavix, furosemide, potassium, Coumadin -will consider Cardiology consult if patient continue to have chest pain -Improving symptoms, No chest pain or shortness of breath today -Discontinued Imdur due to adverse reaction, severe headache that is affecting daily activity. -Start on Lovenox subcu, increase Coumadin dose, DC Lovenox when INR is greater than 2.5, check daily INR until greater than 2.0, until verified from the Stereo Equipment Salesperson -Obtain records from his liner man Fortino Light in [facility], tried to call today but it was an answering service. Pls try to obtain records on Sunday Hypertension -BP slightly Elevated -Continue medication as stated above -Continue increased dose of Coreg, recently started on lisinopril -Continue as needed clonidine for SBP greater than 160 or DBP greater than 90 -Monitor blood pressure, adjust medication as necessary DVT/PE, history of History of polycythemia per patient report -Continue Coumadin dose -INR daily, goal greater than 2.5 less than 3.5 -Encourage ambulation Acute anxiety Major depressive disorder -Management by psychiatric team -Anxiety likely contributing to CP/SOB or vice versa -on Remeron and Zoloft Insomnia -As needed melatonin -Monitor response DVT Prophylaxis: on Coumadin, patient ambulatory Code Status: Full code Discussed Condition With: Patient and nurse (5) Major depressive disorder Qualifiers: Major depression recurrence: single episode Active/Remission status: currently active Major depression episode severity: severe Psychotic features : without psychotic features Qualified Code(s): F32.2 - Major depressive disorder, single episode, severe without psychotic features
[2018-06-16] MEDS: Mirtazapine 15 MG Tablet PO SCH (20:15)
[2018-06-16] MEDS: Melatonin 5 MG Tablet PO PRN (20:19)
[2018-06-17] MEDS: Acetaminophen 325 MG Tablet PO PRN ×2 (04:27→14:06)
[2018-06-17 06:03] VITALS: BP 139/87; PULSE 86; RESP 20; TEMP 98.2; O2SAT 99
[2018-06-17] MEDS: Lisinopril 10 MG Tablet PO SCH (08:14)
[2018-06-17] MEDS: Pantoprazole Sodium 20 MG DR Tablet PO SCH (08:14)
[2018-06-17 09:30] LABS: INR 1.6 Ratio; Prothrombin Time 15.9 sec (9.8-11.6)
--- NOTE | 2018-06-17 12:31 | P.PNIM ---
Subjective Interval history: Follow-up hypertension, chest pain, heart attack, CABG x1 and mitral valve repair,abdominal aortic aneurysm, and suicidal ideation. Patient seen patient seen and examined sitting on the side of the bed, nurse at bedside. Patient denies any chest pain or shortness of breath. Patient stated he has been doing better and ready to go home. Patient states that he have an appointment with his air conditioning equipment mechanic Dr. Van on Sunday, and will follow up with the INR for Coumadin dose. Patient denies any headache or dizziness, denies any abdominal pain, nausea, vomiting, diarrhea or constipation. Patient denies any fever or chills Physical Exam Vital signs: Vital Signs 06/16/18 13:07 06/16/18 14:55 06/16/18 17:19 Temperature 98.3 F Pulse Rate 86 89 Respiratory Rate 16 16 18 Blood Pressure 136/93 H 136/93 H Pulse Oximetry 98 98 06/17/18 06:01 Temperature 98.2 F Pulse Rate 86 Respiratory Rate 20 Blood Pressure 139/87 Pulse Oximetry 99 Intake & Output 06/16/18 06/17/18 06/17/18 18:59 06:59 18:59 Weight 98 kg Narrative: GENERAL: Well-developed, well-nourished, -[place] male, ambulatory in the hallway with no assistive device, in no apparent distress SKIN: Warm and dry. Mid chest surgical scar healing well HEAD: Atraumatic. Normocephalic. EYES: Pupils equal and round. No scleral icterus. No injection or drainage. ENT: No nasal bleeding or discharge. Mucous membranes pink and moist. NECK: Trachea midline. No JVD. CARDIOVASCULAR: Regular rate and rhythm. RESPIRATORY: No accessory muscle use. Clear to auscultation. Breath sounds equal bilaterally. GASTROINTESTINAL: Abdomen soft, non-tender, nondistended. Hepatic and splenic margins not palpable. MUSCULOSKELETAL: Extremities without clubbing, cyanosis, or edema. No obvious deformities. NEUROLOGICAL: Awake and alert. No obvious cranial nerve deficits. Motor grossly within normal limits. Five out of 5 muscle strength in the arms and legs. Normal speech. PSYCHIATRIC: Appropriate mood and affect; insight and judgment poor Results - Labs CBC & Chem 7: 06/12/18 01:19 06/13/18 07:52 Laboratory Results - last 24 hr 06/17/18 08:02 PT 15.9 H INR 1.6 Assessment and Plan - Assessment (1) Arteriosclerosis of coronary artery bypass graft Code(s): I25.810 - Atherosclerosis of coronary artery bypass graft(s) without angina pectoris Status: Acute (2) Chest pain Code(s): R07.9 - Chest pain, unspecified Status: Acute (3) History of mitral valve repair Code(s): Z98.890 - Other specified postprocedural states Status: Acute (4) Acute anxiety Code(s): F41.9 - Anxiety disorder, unspecified Status: Acute (5) Major depressive disorder Code(s): F32.9 - Major depressive disorder, single episode, unspecified Status : Acute - Plan This is a 52-year-old, , -[place] male, with past medical history of abdominal aortic aneurysm, chest pain, heart attack, CABG x1 and mitral valve repair and history of 8 stents per patient. Patient presented to the ED under a police initiated Meza act for threatening to commit suicide with a shotgun. Chest pain/SOB Abdominal aortic aneurysm Arteriosclerosis of coronary artery bypass graft History of mitral valve repair/ Loop recorder Hx CABG x 1, and multiple /stents -c/o chest pain and SOB all the time, resolved -C X-ray: No evidence of pleural effusion or Pneumothorax. Cardiac Silhouette enlargement. Lungs are clear -Troponin less than 0.02 -BNP 538 -2D Echo : The LVEF is [id number] reduced with an estimated EF of 35-40%. Mildly dilated left ventricle. Wall thickness is measured at the upper limits of normal. The left atrial size is mildly dilated. Mild-to- moderate mitral valve regurgitation. Mitral valve annuloplasty ring is present. Mild to moderate mitral annular calcification. Moderate aortic valve regurgitation. Aortic valve sclerosis is present. There is trace tricuspid valve regurgitation. The estimated pulmonary arterial pressure is 47.2 mmHg. Mild pulmonary valve regurgitation -12 Lead ECG : Sinus Rhythm, possible left atrial enlargement indeterminate axis , possible anterior [place], inferior [place] -repeat Troponin 1: less than 0.02 , INR 1.1 -continue Home medications, Carvedilol, Plavix, furosemide, potassium, Coumadin -will consider Cardiology consult if patient continue to have chest pain~chest pain resolved -Improving symptoms, No chest pain or shortness of breath today -Discontinued Imdur due to adverse reaction, severe headache that is affecting daily activity. - increase Coumadin dose, check daily INR until greater than 2.0 -Plan to DC today, cleared with Psych, Patient will follow-up with social science manager Fortino Light in [facility] on Sunday to follow-up with INR Hypertension -BP improving, 139/87 today -Continue increased dose of Coreg, recently started on lisinopril -Continue as needed clonidine for SBP greater than 160 or DBP greater than 90 -Monitor blood pressure, adjust medication as necessary DVT/PE, history of History of polycythemia/blood disorder? per patient report -Continue Coumadin dose -INR daily, goal greater than 2.5 less than 3.5 -Encourage ambulation Acute anxiety Major depressive disorder -Management by psychiatric team -Anxiety likely contributing to CP/SOB or vice versa -on Remeron and Zoloft Insomnia -As needed melatonin -Monitor response DVT Prophylaxis: on Coumadin, patient ambulatory Patient medically cleared to discharge home, follow-up with a air conditioning equipment mechanic Dr. Van in [facility] on Sunday for Coumadin dose adjustments. Code Status: Full code Discussed Condition With: Patient, and nurse Dr. Dalal Discharge Planning: Follow-up with cardiology Dr. Van in [facility]. Check INR on Sunday result to Dr. Van for Coumadin adjustment Follow-up with PCP (5) Major depressive disorder Qualifiers: Major depression recurrence: single episode Active/Remission status: currently active Major depression episode severity: severe Psychotic features : without psychotic features Qualified Code(s): F32.2 - Major depressive disorder, single episode, severe without psychotic features
--- NOTE | 2018-06-17 13:32 | P.DSPSY ---
Psychiatry Discharge Summary Inpatient Psychiatric care?: Yes Advance Directives: No Mental Health Advance Directive: No Health Care Proxy: No - Admission Admission Date: June 12, 2018 16:34 - Admission Diagnosis (1) Major depressive disorder Code(s): F32.9 - Major depressive disorder, single episode, unspecified Brief History: Mr. Ferrera is a 52-year-old male with no reported past psychiatric history who presents in transfer from [facility] under a Meza act. Documentation from outside hospital reviewed. Patient presented to outside hospital under a Meza act by law enforcement alleging that the patient had discharged a firearm in an attempt to injure himself. Patient told the ED provider that he was depressed. Patient seen and examined with nurse. Chart reviewed. Case discussed with nursing staff. Patient noted to be tearful on the unit per nursing. On my examination today, the patient adamantly denies that presenting firearm discharge represented a suicide attempt. He says that he was cleaning his father's antique gun and it accidentally went off. He denies any suicidal ideation intent or plan and says that he wants to live for his grandchildren and children. The patient does admit to feeling depressed however and says that he feels that he has no sense of purpose and is frustrated in dealing with his medical conditions including significant cardiac issues. The patient tells me that he feels like he is "half the man I used to be." He also notes that he lost his mother in August and this was a significant stressor. In addition to low mood and worthless feelings the patient endorses poor sleep and seems fairly anhedonic. No hypomanic or manic symptoms. No audiovisual hallucinations. No delusional material. Remainder of the psychiatric ROS is negative. No acute physical complaints. Tobacco Use In Past 30 Days: No How Often Do You Have a Drink Containing Alcohol: 2 to 3 times a week Hospital Course: Patient was admitted to a locked, inpatient psychiatric unit. A general medical consultation was obtained. Appropriate precautions were in place throughout patient's hospital stay. Patient was seen and examined daily on the unit by psychiatry and also visited by counselor. Psychotropic medications were adjusted. Patient tolerated medication changes well without side effects. Patient had improvement in presenting psychiatric symptomatology during the course of his hospital stay. There was no evidence of any suicidality or homicidality on the inpatient unit. There was no evidence of self-care deficit. On the day of discharge: Patient seen and examined. Chart reviewed. Case discussed with nursing staff. No behavioral issues noted overnight. Case discussed with counselor who has obtained collateral information from patient's girlfriend to the effect that firearm has been secured and girlfriend is comfortable with patient returning home today. On my examination today, the patient is requesting discharge from the inpatient psychiatric unit today. He denies any suicidal or homicidal ideation, intent or plan. Mood is improved, and I can elicit no depressive or hypomanic/manic symptoms. Regarding circumstances of his presentation here, the patient says "I allowed myself to get frustrated. I am not going to keep stuff bottled up. I am going to put my pride on the side" and discuss his stressors openly with support system. He denies any audiovisual hallucinations. I can elicit no delusional material. He denies any side effects from medications. No physical complaints. Weighing the acute, chronic, and protective factors and based on the available evidence, I welding teacher that the patient does not meet criteria for involuntary psychiatric hospitalization at this time. There is no evidence of imminent risk of harm to self or others at this point, nor is there evidence of self- care deficit to substantiate involuntary psychiatric hospitalization. We will bolster his protective factors by referring him for outpatient mental health services. He is requesting discharge from the inpatient psychiatric unit today , and I have no basis to retain him over his objection. Patient will be discharged today with psychiatric follow-up as arranged by counselor. Patient is also to follow-up with primary care. I have discussed discharge plan with mid-level provider from hospitalist service who has provided recommendations regarding medical care after discharge. Patient is to follow-up with his hvac journeyman on Sunday. I have counseled the patient to return to the psychiatric emergency room for any concerning symptoms as part of a general safety plan. With the benefit of observation, it is suspected that presenting distress was driven in large part by adjustment disorder. There may be some degree of underlying depression, now in partial remission, but the severity of this depression is suspected to be much less than initially thought. - Discharge Discharge Date: 06/17/18 - Discharge Diagnosis (1) Adjustment disorder with depressed mood Diagnosis: Principal (resolved) Code(s): F43.21 - Adjustment disorder with depressed mood Status: Acute (2) Major depressive disorder, single episode, in partial remission Diagnosis: Secondary Code(s): F32.4 - Major depressive disorder, single episode, in partial remission Status: Acute Discharge Disposition: Home - Discharge Instructions Discharge Diet: Heart Healthy Diet Activities You Can Perform: Weight Bearing As Tolerat - Discharge Time > 30 minutes Mental Status Examination Appearance: Appropriate Consciousness: Alert Orientation: x4 Motor Activity: Normal gait, Other (No motor abnormalities noted) Speech: Unremarkable Language: Adequate Fund of Knowledge: Adequate Attention and Concentration: Adequate Memory: Unremarkable Mood: Appropriate (Improved versus admission) Affect: Appropriate Thought Process & Associations: Intact Thought Content: Appropriate Hallucination Type: None Delusion Type: None Suicidal Ideation: No Suicidal Plan: No Suicidal Intention: No Homicidal Ideation: No Homicidal Plan: No Homicidal Intention: No Mental Status Exam Remarks: Insight and judgment are fair. Discharge/Advance Care Plan - Results Vital Signs: Last Vital Signs Temp 98.2 F 06/17/18 06:01 Pulse 86 06/17/18 06:01 Resp 20 06/17/18 06:01 BP 139/87 06/17/18 06:01 Pulse Ox 99 06/17/18 06:01 Lab Results: Abnormal Lab Results 06/17/18 08:02 PT 15.9 H INR 1.6 Laboratory Results Hemoglobin A1c 5.6 % (4.3-6.0) 06/13/18 07:52 Triglycerides 100 mg/dL (42-150) 06/13/18 07:52 Cholesterol 128 mg/dL (120-200) 06/13/18 07:52 LDL Cholesterol, Calc 70 mg/dL (0-99) 06/13/18 07:52 HDL Cholesterol 37.6 mg/dL (40.0-60.0) L 06/13/18 07:52 TSH 0.900 uIU/mL (0.358-3.740) 06/13/18 07:52 Summary of Procedures: None done. Imaging: ITS Impressions Chest X-Ray 06/12/18 01:11 CONCLUSION: Cardiac silhouette enlargement. Lungs are clear. Pending Results: None - Medications Number of antipsychotic medications at discharge: 0 - Discharge Care Plan Goals to Promote Your Health: * To prevent worsening of your condition and complications * To maintain your health at the optimal level Directions to Meet Your Goals: Take your medications as prescribed Follow your dietary instruction Follow activity as directed Keep your appointments as scheduled Take your immunizations and boosters as scheduled If your symptoms worsen call your PCP, if no PCP go to Urgent Care Center or Emergency Room For 12/02 questions related to your inpatient stay or results of tests pending at discharge, please contact Dr. Manuel Dalal MD at Smoking is Dangerous to Your Health. Avoid second hand smoking (1) Major depressive disorder Qualifiers: Major depression recurrence: single episode Active/Remission status: currently active Major depression episode severity: severe Psychotic features : without psychotic features Qualified Code(s): F32.2 - Major depressive disorder, single episode, severe without psychotic features
== END 2018-06-17 14:50 | disposition home or self-care (01) ==
LOC: NEPJ 00:05 → NEDA 16:34 → H260 17:40
PROVIDERS: ADMIT Psychiatry & Neurology Psychiatry; ATTEND Psychiatry & Neurology Psychiatry